=== PATIENT | female | born 1980 | race African-American/Black ===

== ENCOUNTER 2017-02-17 21:22 | Emergency (ER) | payer SELFPAY ==
[~2017-02-17] VITALS: Ht 170.2 cm; Wt 91.5 kg
[~2017-02-17 21:22] MED LIST: PRENAT PO
[2017-02-17 21:29] VITALS: Ht 170.2 cm; Wt 91.5 kg
== END 2017-02-17 22:30 | disposition left against medical advice (07) ==
LOC: FTE 21:22
DX: Z53.21 Procedure and treatment not carried out due to patient leaving prior to being seen by health care provider (principal)

== ENCOUNTER 2017-04-13 18:59 | Emergency (ER) | payer SELFPAY ==
[~2017-04-13] VITALS: Ht 172.7 cm; Wt 93.5 kg
[2017-04-13 19:05] VITALS: Ht 172.7 cm; Wt 93.5 kg
== END 2017-04-14 02:39 | disposition left against medical advice (07) ==
LOC: FTE 18:59
DX: Z53.21 Procedure and treatment not carried out due to patient leaving prior to being seen by health care provider (principal)